=== PATIENT | female | born 1960 | race Caucasian/White ===

== ENCOUNTER 2022-04-29 19:25 | Day surgery (SDC) | payer OTHER, SELFPAY ==
[2022-04-29] VITALS (9 sets, daily range): BP systolic 107–162; BP diastolic 52–99; PULSE 78–103; RESP 12–20; TEMP 36–37.1; O2SAT 94–99; BMI 29.6
--- NOTE | 2022-04-29 19:52 | XRR_ITS ---
PROCEDURE INFORMATION: Exam: XR Chest Exam date and time: 04/29/2022 8:35 PM Age: 61 years old Clinical indication: Patient HX: Patient thinks she has a food bolus stuck in distal esophagus. Unable to keep anything down and keeps throwing up saliva. ; Additional info: Esophageal fb, please have her drink some dye with film. TECHNIQUE: Imaging protocol: Radiologic exam of the chest. Views: 1 view. COMPARISON: No relevant prior studies available. FINDINGS: Lungs: Shallow inspiration. Mild atelectasis in the left lung base. The right lung is clear. Pleural spaces: Unremarkable. No pleural effusion. No pneumothorax. Heart/Mediastinum: Some contrast is visible within the proximal and midthoracic esophagus. The distal esophagus is is not opacified or distended. No definite stricture or foreign body is visualized. Bones/joints: Old healed distal left clavicle fracture. No acute fracture identified. XR/XR chest 1V portable [id number] IMPRESSION: 1. No acute pulmonary finding. 2. Limited contrast opacification of the thoracic esophagus with no definite focal lesion or filling defect identified. The distal esophagus and gastroesophageal junction region are not opacified and cannot be evaluated.
[2022-04-29 20:08] LABS: Basophils # 0.1 10^3/uL (0.0-0.1); Basophils % 1.1 %; Eosinophils # 1.2 10^3/uL (0.0-0.8); Eosinophils % 11.9 %; Hematocrit 40.9 % (37.0-47.0); Hemoglobin 13.4 g/dL (11.5-15.3); Lymphocytes # 3.7 10^3/uL (0.8-4.8); Lymphocytes % 35.3 %; Mean Corpuscular HGB Conc 32.8 g/dL (30.0-36.0); Mean Corpuscular Hemoglobin 30.8 pg (28.0-34.0); Mean Platelet Volume 10.1 fL (7.4-10.4); Monocytes # 0.6 10^3/uL (0.2-0.9); Monocytes % 5.5 %; Neutrophils # 4.77 10^3/uL (1.8-7.7); Neutrophils % 45.8 %; Nucleated Red Blood Cells % 0 %; Platelet Count 360 10^3/cmm (130-400); Red Blood Count 4.35 10^6/uL (4.1-5.3); Red Cell Distribution Width 14.6 % (12.1-15.1); White Blood Count 10.4 10^3/uL (4.0-10.0)
--- NOTE | 2022-04-29 20:08 | W.ED.GENADLT ---
HPI - General Adult General: Chief complaint: General Medical Stated complaint: Can't swallow, throwing up white foam Time Seen by Provider: 04/29/22 19:38 Source: patient and family History of Present Illness: 61-year-old female who states that she had a persimmon around 2 PM, and a small amount of brisket shortly thereafter. Since that time, she has not been able to swallow any food or liquid, and is spitting up her own saliva with some white foam. She believes she feels like something is stuck at the top of her chest not allowing her to swallow. She says that when she drinks water, it feels like it stops in that area and then comes back up. No blood in the vomitus. No fever. No significant chest pain. Onset (ago): hour(s) Location: chest Radiation: non-radiation Severity: mild Quality: aching Pain Consistency: constant Relieving factors: none Exacerbating factors: none Associated symptoms: Reports chest pain, decreased appetite, nausea and vomiting; Deny confusion, cough, diaphoresis, dyspnea, fevers/chills, headache(s) or short of breath Treatments prior to arrival: none Review of Systems Const: Denies: diaphoresis Card: Reports: chest pain Resp: Denies: dyspnea, productive cough or non-productive cough GI: Reports: nausea and vomiting; Denies: abdominal pain : Denies: flank pain Neuro: Denies: headache(s) or confusion Physical Exam Const: COMMON NORMALS: no acute distress GENERAL APPEARANCE: cooperative; not ill appearing and not frail appearing HENMT: COMMON NORMALS: normocephalic, atraumatic and Normal external nose present HEAD & SCALP: normocephalic and atraumatic FACE & SINUS: normal facial exam and face symmetric NOSE: Normal external nose present Eye: COMMON NORMALS: Equal, round and reactive pupils present and EOMs intact bilaterally PUPIL: Yes Equal, round and reactive pupils present Neck/C-Spine: GENERAL: Yes trachea midline Chest: CHEST: Yes Symmetrical chest wall rise Resp: COMMON NORMALS: normal respiratory effort, No retractions, No use of accessory muscles and clear to auscultation bilaterally AUSCULTATION: clear to auscultation bilaterally Cardio: COMMON NORMALS: regular rate and regular rhythm RATE: regular rate RHYTHM: regular rhythm GI: COMMON NORMALS: Normal to inspection, nondistended, normoactive bowel sounds present Extremity: COMMON NORMALS: no pedal edema Neuro: ZEESHAN COMA SCALE: document GCS findings [place] coma scale eye opening: Spontaneous Zeeshan coma scale verbal response: Orientated [place] coma scale motor response: Obey commands Zeeshan coma scale total score: 15 SENSORY EXAM: Yes extremities (intact) Psych: COMMON NORMALS: speech normal SPEECH: Yes normal speech Skin: COMMON NORMALS: no rashes or lesions noted GENERAL SKIN EXAM: no rashes or lesions noted Course Vital Signs: Vital signs: Vital Signs Temperature 98.7 F 04/29/22 19:32 Pulse Rate 103 H 04/29/22 20:06 Respiratory Rate 12 04/29/22 20:06 Blood Pressure 144/90 04/29/22 20:06 Pulse Oximetry 96 04/29/22 20:06 Oxygen Delivery Me thod 04/29/22 19:36 MDM - General Adult Medical Decision Making 61-year-old female presenting with a good history for esophageal food bolus impaction. She was given sublingual nitroglycerin, glucagon, and Coca-Cola. She vomited the Coca-Cola. Following this, some barium was swallowed with chest x-ray confirming continued obstruction. Spoke with surgery. He is willing to take to the GI Lab. We will arrange for endoscopy and anesthesia. Lab Data : 04/29/22 20:04 04/29/22 20:04 Radiology Impressions Chest X-Ray 04/29/22 19:52 IMPRESSION: 1. No acute pulmonary finding. 2. Limited contrast opacification of the thoracic esophagus with no definite focal lesion or filling defect identified. The distal esophagus and gastroesophageal junction region are not opacified and cannot be evaluated. Laboratory Results WBC 10.4 10^3/uL (4.0-10.0) H 04/29/22 20:04 RBC 4.35 10^6/uL (4.1-5.3) 04/29/22 20:04 Hgb 13.4 g/dL (11.5-15.3) 04/29/22 20:04 Hct 40.9 % (37.0-47.0) 04/29/22 20:04 MCV 94.0 fl (81-99) 04/29/22 20:04 MCH 30.8 pg (28.0-34.0) 04/29/22 20:04 MCHC 32.8 g/dL (30.0-36.0) 04/29/22 20:04 RDW 14.6 % (12.1-15.1) 04/29/22 20:04 Plt Count 360 10^3/cmm (130-400) 04/29/22 20:04 MPV 10.1 fL (7.4-10.4) 04/29/22 20:04 Neut % (Auto) 45.8 % 04/29/22 20:04 Lymph % (Auto) 35.3 % 04/29/22 20:04 [place] % (Auto) 5.5 % 04/29/22 20:04 Eos % (Auto) 11.9 % 04/29/22 20:04 Baso % (Auto) 1.1 % 04/29/22 20:04 Neut # (Auto) 4.77 10^3/uL (1.8-7.7) 04/29/22 20:04 Lymph # (Auto) 3.7 10^3/uL (0.8-4.8) 04/29/22 20:04 [place] # (Auto) 0.6 10^3/uL (0.2-0.9) 04/29/22 20:04 Eos # (Auto) 1.2 10^3/uL (0.0-0.8) H 04/29/22 20:04 Baso # (Auto) 0.1 10^3/uL (0.0-0.1) 04/29/22 20:04 Nucleated RBC % (auto) 0 % 04/29/22 20:04 Nucleated RBCs # 0.0 /100WBC 04/29/22 20:04 Sodium 139 mmol/L (136-145) 04/29/22 20:04 Potassium 3.5 mmol/L (3.5-5.1) 04/29/22 20:04 Chloride 103 mmol/L (98-107) 04/29/22 20:04 Carbon Dioxide 23 mmol/L (22-29) 04/29/22 20:04 Anion Gap 16.5 (5-19) 04/29/22 20:04 BUN 14 mg/dL (8-23) 04/29/22 20:04 Creatinine 0.9 mg/dL (0.5-0.9) 04/29/22 20:04 GFR Calculation 63.4 mL/min (90-130) L 04/29/22 20:04 Glucose 83 mg/dL (65-115) 04/29/22 20:04 Calculated Osmolality 288 mOsm/kg (285-295) 04/29/22 20:04 Calcium 9.9 mg/dL (8.5-10.5) 04/29/22 20:04 Total Bilirubin 0.5 mg/dL (0.15-1.2) 04/29/22 20:04 AST 24 U/L (0-32) 04/29/22 20:04 ALT 25 U/L (0-33) 04/29/22 20:04 Alkaline Phosphatase 61 U/L (35-105) 04/29/22 20:04 Total Protein 7.8 g/dL (6.6-8.7) 04/29/22 20:04 Albumin 4.5 g/dL (3.5-5.2) 04/29/22 20: Globulin 3.3 g/dL (1.3-4.6) 04/29/22 20:04 Discharge Plan Discharge Patient Disposition: Placed in Observation Clinical Impression: Esophageal obstruction due to food impaction Coding Level of Care Code ED Real Estate Office Manager for Chg Fwd Exam Comprehensive
[2022-04-29] MEDS: nitroglycerin 0.4 mg sublingual Tablet SUBLINGUAL (20:16)
[2022-04-29 20:31] LABS: Alanine Aminotransferase 25 U/L (0-33); Albumin Level 4.5 g/dL (3.5-5.2); Alkaline Phosphatase 61 U/L (35-105); Anion Gap 16.5 (5-19); Aspartate Amino Transferase 24 U/L (0-32); Blood Urea Nitrogen 14 mg/dL (8-23); Calcium 9.9 mg/dL (8.5-10.5); Carbon Dioxide 23 mmol/L (22-29); Chloride 103 mmol/L (98-107); Globulin 3.3 g/dL (1.3-4.6); Glomerular Filtration Rate 63.4 mL/min (90-130); Glucose 83 mg/dL (65-115); Osmolality Calculated 288 mOsm/kg (285-295); Potassium 3.5 mmol/L (3.5-5.1); Sodium 139 mmol/L (136-145); Total Bilirubin 0.5 mg/dL (0.15-1.2); Total Protein 7.8 g/dL (6.6-8.7)
--- NOTE | 2022-04-29 21:19 | P.HP_ITS ---
Providers/Chief Complaint Admitting Physician: General Surgery/Michael Burrell MD, FACS, RPVI Chief Complaint: Can't swallow, throwing up white foam History of Present Illness Nerissa Carrasquillo is a 61 year old female She ate some kind of green fluid today and sent prescription and realized that she is not able to swallow anymore. Came to the emergency room, was evaluated with contrast, esophageal obstruction was confirmed. Surgery was contacted for disimpaction. She had similar episodes about 2 times over the last year. They resolved by itself. She never had upper or lumbar endoscopy. She denies any significant medical problems other than hypertension. She can walk a mile easily without any problems. She is active. Admits history of constipation. Never had a colonoscopy. History of lung cancer in her family. No history of any GI cancer. She never smoked. History of significant alcohol consumption, however, she quit 1 to 2 years ago. She is a social drinker now. History of ankle surgery. Ovarian cyst removal. She is not allergic to any medicine. She is accompanied by her . Review of Systems Narrative: 10 point review of systems is negative except as per HPI Medications/Allergies Allergies Allergy/AdvReac Type Severity Reaction Status Date / Time No Known Allergies Allergy Verified 04/29/22 19:36 Vitals/I&O/Wt Last Vital Signs Temp 98.7 F 04/29/22 19:32 Pulse 103 H 04/29/22 20:06 Resp 12 04/29/22 20:06 BP 144/90 04/29/22 20:06 Pulse Ox 96 04/29/22 20:06 O2 Del Method 04/29/22 19:36 Weight last 48 hrs Weight 183 lb 9.6 oz Physical Exam Narrative: General: No acute distress Psych: [AAOx3] Eyes: [sclerae are white] Head/ENT: [normocephalic, symmetric] CV: [regular] pulse, [tachychardic], no JVD Lungs: [symmetrical chest rise] Abdomen: [soft, ND] Ext: [no obvious traumatic deformities] Skin: warm Data : 04/29/22 20:04 04/29/22 20:04 A&P Assessment and plan (1) Esophageal obstruction due to food impaction: (2) Hypertension: Plan Initial history of esophageal obstruction with a food bolus was discussed with the patient. I recommended EGD and disimpaction. Risks and benefits of surgery were discussed with the patient including possible complications including bleeding, damage to the esophageal wall, inability to remove food bolus, perforation of the esophagus, mediastinitis, complications related to general anesthesia and aspiration. The patient understands and agrees to proceed with endoscopy and removal of food bolus. OR was already notified. Attestations Medical Necessity Statement*: Endoscopy procedure Coding Level of Care Code Acute Outpatient Coder for g Fwd Diagnoses Esophageal obstruction due to food impaction K22.2; T18.128A Hypertension I10
[2022-04-29] MEDS: sodium chloride 0.9% 1,000 ML 30 ML IV (22:00)
--- NOTE | 2022-04-29 22:09 | ANES.PREANE2 ---
Pre-Anesthetic Assessment Height/Weight: Height 1.68 m Weight 83.28 kg Temp Pulse Resp BP Pulse Ox O2 Del Method 98.7 F 83 18 132/76 99 04/29/22 19:32 04/29/22 22:05 04/29/22 22:05 04/29/22 22:05 04/29/22 22:05 04/29/22 22:05 Operation Date: 04/29/22 22:00 Proposed Procedures p EGD(Not Applicable) - Michael Burrell MD s Foreign Body Removal(Not Applicable) - Michael Burrell MD Familial anesthetic complications: none Was Beta Radha taken within 24 hours: N/A Was Clonidine taken within 24 hours: N/A Social Alcohol and No tobacco Exam alert, oriented x 3, clear to auscultation bilaterally and regular rate & rhythm Airway Submandibular: within normal limits Cervical ROM: within normal limits Mallampati: Class II Dentition: full Comments: Comments: overbite CV/HEM Hypertension Anesthetic Plan ASA status: 2E Anesthesia: General (RSI) Medications/Allergies Allergies Allergy/AdvReac Type Severity Reaction Status Date / Time No Known Allergies Allergy Verified 04/29/22 19:36 Current Medications Generic Name Dose Route Start Last Admin Trade Name Freq PRN Reason Stop Dose Admin Sodium Chloride 1,000 mls @ 30 mls/hr 04/29/22 22:00 04/29/22 22:00 Sodium Chloride 0.9% IV 04/30/22 21:59 30 mls/hr .Q24H JOVANNI Administration Data Anesthesia : 04/29/22 20:04 04/29/22 20:04 Short CBC 04/29/22 Range/Units 20:04 WBC 10.4 H (4.0-10.0) 10^3/uL Hgb 13.4 (11.5-15.3) g/dL Hct 40.9 (37.0-47.0) % MCV 94.0 (81-99) fl Plt Count 360 (130-400) 10^3/cmm Neut % (Auto) 45.8 % Neut # (Auto) 4.77 (1.8-7.7) 10^3/uL BMP 04/29/22 20:04 Sodium 139 Potassium 3.5 Chloride 103 Carbon Dioxide 23 BUN 14 Creatinine 0.9 Glucose 83 Calcium 9.9 Liver Function 04/29/22 Range/Units 20:04 Total Bilirubin 0.5 (0.15-1.2) mg/dL AST 24 (0-32) U/L ALT 25 (0-33) U/L Alkaline Phosphatase 61 (35-105) U/L Albumin 4.5 (3.5-5.2) g/dL Cardiac Studies: No Data to Display
[2022-04-30 00:02] VITALS: BP 122/52; PULSE 76; RESP 18; O2SAT 95
[2022-04-30 00:13] VITALS: BP 131/93; PULSE 86; RESP 16; O2SAT 97
--- NOTE | 2022-04-30 08:16 | ANE.PACU2 ---
Inpatient post-anesthesia follow up: Airway intact: Yes Vital signs: Temperature 96.8 F Pulse Rate 86 Respiratory Rate 16 Blood Pressure 131/93 Pulse Oximetry 97 Oxygen Delivery Me thod Room Air Oxygen Flow Rate Fraction of Inspir ed Oxygen Hydration adequate: Yes Nausea and vomiting: No Pain level: 2 Mental status: Baseline
== END 2022-04-30 00:22 | disposition home or self-care (01) ==
LOC: ER 20:47 → GILAB 21:03
PROVIDERS: Emergency Provider Emergency Medicine; Visit Provider Surgery
PROC: 0DJ08ZZ Inspection of Upper Intestinal Tract, Via Natural or Artificial Opening Endoscopic (ICD-10-PCS; CPT 43235; principal; 2022-04-29 22:00)
DX: K22.2 Esophageal obstruction (principal); T18.128A Food in esophagus causing other injury, initial encounter; I10 Essential (primary) hypertension
CPT/HCPCS: 12345; 43235; 43247; 43249; 71045; 80053; 85025; J0330; J1100; J1610; J2405; J2704; J3010; J3490; J7030

== ENCOUNTER → 2025-05-07 07:39 | Outpatient (BNVA) | payer MEDICARE, OTHER, SELFPAY | PROVIDERS: Visit Provider Nurse Practitioner Family | DX: L71.8 Other rosacea (principal); L90.5 Scar conditions and fibrosis of skin; D23.39 Other benign neoplasm of skin of other parts of face; L82.1 Other seborrheic keratosis; L81.4 Other melanin hyperpigmentation; L57.8 Other skin changes due to chronic exposure to nonionizing radiation; Z08 Encounter for follow-up examination after completed treatment for malignant neoplasm; Z85.820 Personal history of malignant melanoma of skin | CPT/HCPCS: 99204 ==